=== PATIENT | male | born 1990 | race Caucasian/White ===

== ENCOUNTER 2017-04-18 08:06 | Emergency (ER) | payer OTHER ==
[~2017-04-18] VITALS: Ht 180.3 cm; Wt 79.8 kg
[~2017-04-18 08:06] MED LIST: ALPRAZOLAM2 MG PO; CELEXA40 MG PO; NOVAPLUS V0.09 MG/Ac INH; SEROQUEL (MONO200 MG PO; XANAX PO; XANAX2 MG PO; ZITHROMAX Z-PA250 M1 PO
[2017-04-18 08:10] VITALS: BP 147/88
[2017-04-18] MEDS ORDERED: CELEXA40 M1 PO (08:43)
[2017-04-18] MEDS ORDERED: XANAX2 M1 PO (08:43)
[2017-04-18] MEDS ORDERED: SEROQUEL200 M1 PO (08:43)
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
== END 2017-04-18 09:06 ==
LOC: ERH 08:06
DX: F41.1 Generalized anxiety disorder (principal); Z76.0 Encounter for issue of repeat prescription

== ENCOUNTER 2017-04-24 19:54 | Emergency (ER) | payer OTHER ==
[~2017-04-24] VITALS: Ht 180.3 cm; Wt 80.3 kg
[~2017-04-24 19:54] MED LIST changes: +CELEXA40 M1 PO; +SEROQUEL200 M1 PO; +XANAX2 M1 PO
[2017-04-24 20:21] VITALS: BP 112/66
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
[2017-04-24] MEDS ORDERED: XANAX2 M1 PO (20:50)
== END 2017-04-24 20:56 ==
LOC: ERH 19:54
DX: Z76.0 Encounter for issue of repeat prescription (principal)
CPT/HCPCS: 99281